=== PATIENT | male | born 1940 | race Caucasian/White ===

== ENCOUNTER 2017-07-05 11:21 | Emergency (ER) | payer MEDICARE, OTHER ==
[~2017-07-05] VITALS: Ht 175.3 cm; Wt 75.3 kg
[2017-07-05] MEDS ORDERED: CEFTRIAXONE SOD 500 MG VIAL IM ONE (12:30)
[2017-07-05] MEDS ORDERED: JANUMET 50-1,01 EACH (15:55)
[2017-07-05] MEDS ORDERED: GLIPIZIDE ER10 MG (15:56)
[2017-07-05] MEDS ORDERED: CLOPIDOGREL75 MG PO (15:57)
[2017-07-05] MEDS ORDERED: ECOTRIN81 MG (15:57)
[2017-07-05] MEDS ORDERED: LEVOTHYROXINE75 MCG PO (15:58)
[2017-07-05] MEDS ORDERED: METOPROLOL TART25 MG PO (15:58)
[2017-07-05] MEDS ORDERED: ATORVASTATIN CA10 MG PO (15:59)
[2017-07-05] MEDS ORDERED: LISINOPRIL10 MG PO (15:59)
[2017-07-05] MEDS ORDERED: PROTONIX40 MG/ML (16:01)
== END 2017-07-05 13:05 | disposition home or self-care (01) ==
LOC: FSED 11:21
DX: R50.9 Fever, unspecified (principal); R05 Cough; J20.9 Acute bronchitis, unspecified; J00 Acute nasopharyngitis [common cold]
CPT/HCPCS: 71046; 85025; 99283; J0696

== ENCOUNTER → 2019-04-06 | Day surgery (SDC) | payer MEDICARE ==
[2019-04-01 15:21] LABS: BASOPHILS # (AUTO) 0.1 (0.0-0.1); BASOPHILS % 0.8 % (0.0-1.0); EOSINOPHILS # (AUTO) 0.1 (0.0-0.4); HEMATOCRIT 40.6 % (38.2-49.6); LYMPHOCYTES # (AUTO) 2.6 (1.0-3.2); LYMPHOCYTES % 40.3 % (18.0-39.1); MEAN CORPUSCULAR HEMOGLOBIN 26.4 pg (28-32); MEAN CORPUSCULAR VOLUME 82.4 fL (81-99); MONOCYTES # (AUTO) 0.6 (0.2-0.8); MONOCYTES % 9.1 % (4.4-11.3); NEUTROPHILS % 47.6 % (38.7-80.0); PLATELET COUNT 244 x10e3/uL (140-360); RED BLOOD COUNT 4.93 x10e6/uL (4.3-5.7); RED CELL DISTRIBUTION WIDTH 14.2 % (11.7-14.4)
[2019-04-01 15:36] LABS: ANION GAP 11.3 mmol/L (8-16); BLOOD UREA NITROGEN 23 mg/dL (7-26); BUN/CREATININE RATIO 20 (6-25); CALCIUM 9.3 mg/dL (8.4-10.2); CARBON DIOXIDE 28 mmol/L (22-29); CHLORIDE 102 mmol/L (98-107); CREATININE, SERUM 1.15 mg/dL (0.72-1.25); EST GLOMERULAR FILTRATION RATE > 60 ML/MIN (60-); GLUCOSE 90 mg/dL (74-118); POTASSIUM 4.3 mmol/L (3.5-5.1); SODIUM 137 mmol/L (136-145)
[~2019-04-06] MED LIST: ATORVASTATIN CA10 MG PO; BUPIVACAINE 0.25%/EPI 30ML SDV INJ ONE; CLOPIDOGREL75 MG PO; DIOVAN HCT 3201 EAC1 PO; ECOTRIN81 MG PO; FENTANYL CITRATE/PF 100MCG/2 ML INJ ONE; FLOMAX0.4 MG PO; GLIPIZIDE ER10 MG; JANUMET 50-1,01 EACH; LEVOTHYROXINE75 MCG PO; LIDOCAINE HCL 1% LOCAL INJ 20 ML VIAL ONE; LIDOCAINE HCL 2% LOCAL INJ 5 ML SDV VIAL INJ ONE; LISINOPRIL10 MG PO; METFORMIN HCL1000 MG PO; METOPROLOL TART25 MG PO; MIDAZOLAM HCL 2 MG/2 ML VIAL ONE; NIFEDIPINE10 MG PO; NOVOLOG100 UNIT/1 SQ; PANTOPRAZOLE SO40 MG PO; PRAMIPEXOLE D0.25 MG PO; PROPOFOL IV EMULSION 10 MG/ML 20 ML VIAL ONE; PROTONIX40 MG/ML; TRESIBA SQ; TRULICITY SQ; VASCEPA PO; ZEBETA10 MG PO
[2019-04-06 10:35] VITALS: BP 136/80
--- NOTE | 2019-04-06 12:53 | Operative Report ---
DATE OF PROCEDURE: 04/06/2019 SURGEON: Chepe Gallardo MD PREOPERATIVE DIAGNOSIS: Right inguinal hernia. POSTOPERATIVE DIAGNOSIS: Right inguinal hernia. OPERATION PERFORMED: Repair of right inguinal hernia with Prolene hernia system. FLOWER ARRANGER: OMAR Kelsey. ANESTHESIA: Local 1% Xylocaine and 0.25% Marcaine and MAC. COMPLICATIONS: None. ESTIMATED BLOOD LOSS: Minimal. DESCRIPTION OF PROCEDURE: With the patient lying in bed in the supine position, under good IV sedation, and the abdomen was prepped with Betadine solution and draped in the usual manner. Standard right inguinal field block was then performed with 0.25% Marcaine and 1% lidocaine. The right inguinal incision was made, it was carried down through the subcutaneous tissue down to the external oblique aponeurosis. The external oblique was then opened along the length of its fibers and the external inguinal ring was opened. The cord was then mobilized and retracted. Contained within the cord was a moderate-sized lipoma of the cord, which was from the cord structures, ligated with 2-0 Vicryl and resected. There was no indirect hernia sac present. There was, however, a large direct defect present. The direct hernia was then imbricated with a pursestring suture of 0 Ethibond. After this was done, the preperitoneal space was then entered right through the internal ring and a pocket was created without any difficulty. An extended Prolene hernia system was placed in the preperitoneal space and the underlay patch was deployed without any problems. The overlay patch was then placed over the floor and split inferolaterally to allow for passage of the cord. The mesh was then sutured to the conjoined tendon and the inguinal ligament using interrupted sutures of 2-0 Vicryl. The hemostasis was ascertained. The external oblique aponeurosis was then closed with a running suture of 2-0 Vicryl. The subcutaneous tissue was approximated with 3-0 plain and the skin was closed with clips. A dressing was applied. The sponge, lap, and needle counts were correct. The patient tolerated the procedure well and returned to the recovery room in stable condition. Chepe Gallardo MD JLR/AMELIEL /[id number]
== END | disposition home or self-care (01) ==
LOC: OR 06:46
PROVIDERS: ATTEND Surgery
DX: K40.90 Unilateral inguinal hernia, without obstruction or gangrene, not specified as recurrent (principal); D17.6 Benign lipomatous neoplasm of spermatic cord; G47.33 Obstructive sleep apnea (adult) (pediatric); E11.9 Type 2 diabetes mellitus without complications; K44.9 Diaphragmatic hernia without obstruction or gangrene; N40.0 Benign prostatic hyperplasia without lower urinary tract symptoms; I25.10 Atherosclerotic heart disease of native coronary artery without angina pectoris; I10 Essential (primary) hypertension; E78.5 Hyperlipidemia, unspecified; Z88.6 Allergy status to analgesic agent; Z01.810 Encounter for preprocedural cardiovascular examination; Z01.812 Encounter for preprocedural laboratory examination; Z79.82 Long term (current) use of aspirin; Z79.02 Long term (current) use of antithrombotics/antiplatelets; Z79.4 Long term (current) use of insulin; Z79.84 Long term (current) use of oral hypoglycemic drugs; Z98.61 Coronary angioplasty status
CPT/HCPCS: 36415 ×2; 49505; 80048; 82948; 85025; 93005; C1781; J2001 ×2; J2250; J2704; J3010

== ENCOUNTER → 2021-01-16 | Outpatient (RCR) | payer MEDICARE ==
[~2021-01-16] MED LIST changes: -BUPIVACAINE 0.25%/EPI 30ML SDV INJ ONE; -FENTANYL CITRATE/PF 100MCG/2 ML INJ ONE; -LIDOCAINE HCL 1% LOCAL INJ 20 ML VIAL ONE; -LIDOCAINE HCL 2% LOCAL INJ 5 ML SDV VIAL INJ ONE; -MIDAZOLAM HCL 2 MG/2 ML VIAL ONE; -PROPOFOL IV EMULSION 10 MG/ML 20 ML VIAL ONE
== END ==
LOC: PT 12-21 09:52
PROVIDERS: ATTEND Neurological Surgery
DX: M48.061 Spinal stenosis, lumbar region without neurogenic claudication (principal)
CPT/HCPCS: 97139

== ENCOUNTER → 2021-02-15 | Outpatient (RCR) | payer MEDICARE | LOC: PT 01-18 09:05 | PROVIDERS: ATTEND Neurological Surgery | DX: M48.061 Spinal stenosis, lumbar region without neurogenic claudication (principal) | CPT/HCPCS: 97139 ==